=== PATIENT | female | born 1960 | race Caucasian/White ===

== ENCOUNTER → 2021-01-16 10:34 | Outpatient (BNVA) | payer MEDICAID, SELFPAY | PROVIDERS: PCP Internal Medicine; Visit Provider Student in an Organized Health Care Education/Training Program | DX: M25.562 Pain in left knee (principal); M25.561 Pain in right knee; M17.0 Bilateral primary osteoarthritis of knee; M79.7 Fibromyalgia; I73.00 Raynaud's syndrome without gangrene; Z87.891 Personal history of nicotine dependence; Z79.899 Other long term (current) drug therapy | CPT/HCPCS: 20610; 99212 ==

== ENCOUNTER 2021-05-21 11:21 | Outpatient (REF) | payer MEDICAID, SELFPAY ==
[2021-05-21 12:55] LABS: Hematocrit 38.1 % (37-47); Hemoglobin 12.8 g/dl (12.0-16.0); Mean Corpuscular HGB Conc 33.6 g/dl (31.0-35.0); Mean Corpuscular Hemoglobin 31.5 pg (27.0-33.0); Mean Corpuscular Volume 93.8 fL (80-98); Mean Platelet Volume 10.8 fL (9.4-12.3); Platelet Count 255 X10*3/uL (160-400); Red Blood Count 4.06 X10*6/uL (4.20-5.50); Red Cell Distribution Width 13.8 % (11.0-16.0); White Blood Count 8.6 X10*3/uL (4.8-10.8)
[2021-05-21 13:16] LABS: Alanine Aminotransferase 10 U/L (0-31); Albumin Level 4.2 g/dL (3.5-5.0); Alkaline Phosphatase 69 U/L (39-117); Anion Gap 15 (12-20); Aspartate Amino Transferase 17 U/L (5-31); Bilirubin Total 0.3 mg/dL (0.0-1.0); Blood Urea Nitrogen 6 mg/dL (9-16); Calcium 9.8 mg/dL (8.4-10.2); Carbon Dioxide 23 mmol/L (22-29); Chloride 105 mmol/L (96-108); Estimated Glomerular Filt Rate > 60; Glucose Random 85 mg/dL (60-115); Iron 85 mcg/dL (30-160); Percent Iron Saturation 27 % (15-50); Sodium 139 mmol/L (135-145); Total Iron Binding Capacity 313 mcg/dL (228-428); Total Protein 6.7 g/dL (6.5-8.0); Unsaturated Iron Binding 228 ug/dL
[2021-05-21 13:37] LABS: Vitamin D 25-OH Total 33.8 ng/mL (>30)
[2021-05-21 13:38] LABS: Vitamin B12 1197 pg/mL (200-900)
[2021-05-21 14:08] LABS: Ferritin 39 ng/mL (10-250)
== END 2021-05-21 11:22 | disposition home or self-care (01) ==
LOC: HO.MANLDS 11:21
PROVIDERS: PCP Internal Medicine; Visit Provider Internal Medicine
DX: R53.83 Other fatigue (principal)
CPT/HCPCS: 36415; 80053; 82306; 82607; 82728; 83540; 85027

== ENCOUNTER 2021-08-28 12:11 | Outpatient (REF) | payer MEDICAID, SELFPAY ==
--- NOTE | ~2021-08-28 | XR_ITS ---
EXAMINATION: XR KNEE STANDING, BILATERAL XR KNEE, RIGHT CLINICAL INFORMATION: Pain in unspecified knee. COMPARISON: XR bilateral knees 09/29/2019. TECHNIQUE: AP standing view of both knees. Lateral and sunrise views of the right knee. FINDINGS: Right Knee: There is no fracture, malalignment, or joint effusion. There is no change in moderate medial compartment narrowing. Left Knee: Limited AP view demonstrates no change in moderate narrowing in the medial compartment. XR/XR knee standing BI IMPRESSION: Right Knee: No change in moderate medial compartment narrowing. Left Knee: No change in moderate medial compartment narrowing.
--- NOTE | ~2021-08-28 | XR_ITS ---
EXAMINATION: XR KNEE STANDING, BILATERAL XR KNEE, RIGHT CLINICAL INFORMATION: Pain in unspecified knee. COMPARISON: XR bilateral knees 09/29/2019. TECHNIQUE: AP standing view of both knees. Lateral and sunrise views of the right knee. FINDINGS: Right Knee: There is no fracture, malalignment, or joint effusion. There is no change in moderate medial compartment narrowing. Left Knee: Limited AP view demonstrates no change in moderate narrowing in the medial compartment. XR/XR knee RT 2V IMPRESSION: Right Knee: No change in moderate medial compartment narrowing. Left Knee: No change in moderate medial compartment narrowing.
== END 2021-08-28 12:12 | disposition home or self-care (01) ==
LOC: HO.HOSX 12:11
PROVIDERS: Visit Provider Orthopaedic Surgery
DX: M17.11 Unilateral primary osteoarthritis, right knee (principal); M23.91 Unspecified internal derangement of right knee
CPT/HCPCS: 73560; 73565; 99202

== ENCOUNTER 2021-09-08 14:19 | Outpatient (REF) | payer MEDICAID, SELFPAY ==
--- NOTE | ~2021-09-08 | MR_ITS ---
EXAMINATION: MR KNEE WITHOUT CONTRAST, RIGHT CLINICAL INFORMATION: Primary osteoarthritis. Right knee pain. COMPARISON: Series of the right knee August 2021. TECHNIQUE: MRI of the knee without contrast was performed using routine sequences on a high-field scanner. FINDINGS: MENISCI: Medial Meniscus: There is marked attenuation of the body of the meniscus. There is also oblique increased signal in the posterior horn extending to the tibial articular surfaces. Findings compatible with tearing of the meniscus. Anterior horn remains intact. Lateral Meniscus: Intact. LIGAMENTS: Cruciate: Intact. Collateral: Intact. EXTENSOR MECHANISM: Intact. ARTICULAR CARTILAGE/BONE: Patellofemoral Compartment: Normal. Medial Compartment: Normal. Lateral Compartment: There are scattered areas of nonuniform up to high-grade cartilage loss and/or heterogeneity in the posterior weightbearing femoral articular surface. Tibial cartilage is intact. Overall mild arthrosis. JOINT FLUID AND BURSAE: Trace Glover's cyst. MR/MR knee RT wo con IMPRESSION: Abnormal-appearing medial meniscus which presumably represents a meniscal tear unless the patient has had prior surgery which could also result in a similar appearance. Mild osteoarthritis of the lateral compartment.
== END 2021-09-08 14:20 | disposition home or self-care (01) ==
LOC: HO.MRI 14:19
PROVIDERS: PCP Internal Medicine; Visit Provider Orthopaedic Surgery
DX: M17.11 Unilateral primary osteoarthritis, right knee (principal); M23.91 Unspecified internal derangement of right knee
CPT/HCPCS: 73721

== ENCOUNTER → 2021-09-22 12:29 | Outpatient (BNVA) | payer MEDICAID, SELFPAY | PROVIDERS: PCP Internal Medicine; Visit Provider Orthopaedic Surgery | DX: S83.241A Other tear of medial meniscus, current injury, right knee, initial encounter (principal) | CPT/HCPCS: 99212 ==

== ENCOUNTER 2021-10-15 05:53 | Day surgery (SDC) | payer MEDICAID, SELFPAY ==
[2021-10-09 11:50] VITALS: BMI 28.5
--- NOTE | 2021-10-14 08:39 | HO.ANESPROP2 ---
HPI - Anesthesia Eval Consult details Narrative: 61yo F for Right Knee Arthroscopy PMFSH Active Problems Active Problems: All Active Problems (Updated 10/09/21 @ 11:53 by Cassia Casanova RN) Primary osteoarthritis of right knee (Acute) Primary osteoarthritis of left knee (Acute) Internal derangement of left knee (Acute) Internal derangement of right knee (Acute) Tear of medial meniscus of left knee (Acute) Tear of medial meniscus of right knee (Acute) Past Medical History Medical History Fibromyalgia HTN (hypertension) Osteoarthritis Raynauds syndrome Wears dentures Family History Family History Father Prostate cancer Mother Aneurysm Surgical History Surgical History H/O: hysterectomy Hx of appendectomy S/P left knee arthroscopy S/P right knee arthroscopy Social History Social History Are you a primary manager primary care to a significant other at home: No Do you presently have visiting nurse or other home services: No Alcohol intake: never Patient Tobacco Use Status: Current everyday Tobacco user Tobacco use type: Cigarette Cigarettes Per Day: 10 Years Smoked: 48 Current occupational status: employed 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 [employer] Allergies Allergy/AdvReac Type Severity Reaction Status Date / Time Chapstick Allergy Mild lips swell Uncoded 10/20/21 11:16 Home Medications Medication Instructions Recorded Confirmed Last Taken Type gabapentin 300 mg capsule 300 mg PO TID 01/16/21 10/09/21 Unknown History nicotine 7 mg/24 hr daily 1 patch TRANSDERMAL Q24H 01/16/21 01/16/21 Unknown History transdermal patch amlodipine 10 mg tablet 10 mg PO DAILY 08/28/21 10/09/21 10/15/21 05:00 History sucralfate 1 gram tablet 1 g PO BID 08/28/21 10/09/21 Unknown History Exam Exam Date and Time: October 14, 2021 0839 Height,Weight and Vital Signs: Height 5 ft 7.5 in Weight 83.915 kg Pertinent Lab Results Pertinent Lab Results: Laboratory Tests 05/21/21 05/21/21 11:59 11:59 WBC 8.6 Hgb 12.8 Hct 38.1 Plt Count 255 Sodium 139 Potassium 4.0 Chloride 105 Carbon Dioxide 23 BUN 6 L Creatinine 0.69 Assessment and Plan Assessment Anesthesia Assessment: Chart Reviewed
[2021-10-15] VITALS (22 sets, daily range): BP systolic 94–110; BP diastolic 60–71; PULSE 53–73; RESP 10–16; TEMP 36.6–36.8; O2SAT 92–99
[2021-10-15] MEDS: Lactated Ringers 1,000 ML 100 ML IVCONT (06:26)
--- NOTE | 2021-10-15 07:31 | MHC.SHP ---
Pre-Procedural Eval Section A Date of Service: 10/15/21 The patient is an INPATIENT: No Changes since office visit: Yes Patient answered all questions; No Cold of Flu in the past 2 weeks, No New Medical Problems and No Changes in Medication The History & Physical has been completed within 30 days and I have reviewed it.: Yes Section B Chief Complaint: medial meniscus tear Allergies: Allergies Allergy/AdvReac Type Severity Reaction Status Date / Time Rosi Allergy Severe lips swell Uncoded 10/15/21 06:04 Plan I have reviewed the history and physical and performed a pertinent physical examination on my patient. No changes have occurred unless specified.
--- NOTE | 2021-10-15 08:09 | P.BOP_ITS ---
Brief Operative Note Date of Service: 10/15/21 Pre-op diagnosis: right knee MMT Post-op diagnosis: same Procedure: right knee with partial medial meniscectomy Implants: none Surgeon: Nelson Fermin MD Anesthesia: GETA and local Was an Gas Engine Performance Engineer used for this Procedure?: No Estimated blood loss (mL): 25 IV fluids (mL): 1,000 Pathology: none sent Condition: stable Disposition: PACU
[2021-10-15] MEDS: fentaNYL citrate/PF 100 MCG/2 ML VIAL 25 MCG IVPUSH (08:33)
[2021-10-15] MEDS: fentaNYL citrate/PF 100 MCG/2 ML VIAL 50 MCG IVPUSH (08:42)
[2021-10-15] MEDS: oxyCODONE HCl Immed Release 5 MG TABLET 10 MG PO (08:44)
--- NOTE | 2021-11-12 09:41 | W.PM.OPN ---
Operative Note Operative Note Date of Service: 10/15/21 Narrative: Date of Service: 10/15/21 Pre-op diagnosis: right knee MMT Post-op diagnosis: same Procedure: right knee with partial medial meniscectomy Implants: none Surgeon: Nelson Fermin MD Anesthesia: GETA and local Was an Computer Programming Supervisor used for this Procedure?: No Estimated blood loss (mL): 25 IV fluids (mL): 1,000 Pathology: none sent Condition: stable Disposition: PACU Patient was brought to the operating room placed supine on the arthroscopic table and prepped and draped in standard sterile fashion. A time-out was called to identify proper site proper procedure proper surgeon and IV antibiotics per weight were administered. I began by exsanguinating the limb and insufflating tourniquet to 300 mm Hg. Then made a standard anterolateral stab incision. knee was insufflated with water and 30 degree arthroscope was placed. There was grade 1 fibrillations of the patella but overall suprapatellar pouch was plane and the gutters were clean. I descended into the medial compartment where I made my medial portal under direct visualization. There was obvious of complex tear of the body and posterior horn of the medial meniscus. Root was intact and there was grade 1 changes with some scattered grade 2 changes throughout the medial compartment. I used a combination of biter shaver and cautery to remove unstable portions of the meniscus. Approximately 40% meniscal volume was removed. Once I was happy with this the ACL was examined and found to be intact and the lateral compartment also was without the need for intervention. I then removed all instrumentation and closed the portals with skin glue. 25 mL of 2% Marcaine with epinephrine was injected into the joint and the surrounding soft tissues. Patient was then placed in sterile dressing extubated brought recovery room stable condition. There were no known complications.
== END 2021-10-15 12:15 | disposition home or self-care (01) ==
PROVIDERS: PCP Internal Medicine; Visit Provider Orthopaedic Surgery
PROC: (CPT 29870; principal; 2021-10-15 07:30)
DX: S83.231A Complex tear of medial meniscus, current injury, right knee, initial encounter (principal); X58.XXXA Exposure to other specified factors, initial encounter; Y93.9 Activity, unspecified; Y92.9 Unspecified place or not applicable; Y99.8 Other external cause status; M17.11 Unilateral primary osteoarthritis, right knee; M79.7 Fibromyalgia; I73.00 Raynaud's syndrome without gangrene; I10 Essential (primary) hypertension; Z79.899 Other long term (current) drug therapy; F17.210 Nicotine dependence, cigarettes, uncomplicated
CPT/HCPCS: 29881; J0171; J0690; J1100; J1885; J2250; J2405; J3010

== ENCOUNTER 2021-10-20 09:51 | Outpatient (RCR) | payer MEDICAID, SELFPAY ==
--- NOTE | 2021-10-15 07:07 | P.CONAN_ITS ---
[facility] Active Problems Active Problems: All Active Problems (Updated 10/15/21 @ 06:04 by Milly Cage RN) Primary osteoarthritis of right knee (Acute) Primary osteoarthritis of left knee (Acute) Internal derangement of left knee (Acute) Internal derangement of right knee (Acute) Tear of medial meniscus of left knee (Acute) Tear of medial meniscus of right knee (Acute) Past Medical History Medical History Fibromyalgia HTN (hypertension) Osteoarthritis Raynauds syndrome Wears dentures Family History Family History Father Prostate cancer Mother Aneurysm Family history of problems with anesthesia: No Surgical History Surgical History H/O: hysterectomy Hx of appendectomy S/P left knee arthroscopy S/P right knee arthroscopy History of Problems with Anesthesia: No Social History Social History (Updated 10/09/21 @ 11:50 by Cassia Casanova RN) Are you a primary primary care sales representative to a significant other at home: No Do you presently have visiting nurse or other home services: No Alcohol intake: never Patient Tobacco Use Status: Current everyday Tobacco user Tobacco use type: Cigarette Cigarettes Per Day: 10 Years Smoked: 48 Use of substances other than those prescribed or required for medical reasons: No Have you been hit, kicked, punched, or otherwise hurt by someone within the past year? 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 - [employer] Allergies Allergy/AdvReac Type Severity Reaction Status Date / Time Chapstick Allergy Severe lips swell Uncoded 10/15/21 06:04 Home Medications Medication Instructions Recorded Confirmed Last Taken Type gabapentin 300 300 mg PO TID 01/16/21 10/09/21 Unknown History mg capsule nicotine 7 1 patch 01/16/21 01/16/21 Unknown History mg/24 hr daily TRANSDERMAL Q24H transdermal patch amlodipine 10 10 mg PO DAILY 08/28/21 10/09/21 10/15/21 05:00 History mg tablet sucralfate 1 1 g PO BID 08/28/21 10/09/21 Unknown History gram tablet Exam Exam Date and Time: October 15, 2021 0790 Airway Mallampati Class: II TM Dist: >3cm Neck ROM: Full Denture: Upper Assessment and Plan Assessment Anesthesia Assessment: Anesthesia Plan Discussed, Smoking Cess. Discussed and Chart Reviewed Final Anesthetic Review Family History of Problems with Anesthesia: No History of Problems with Anesthesia: No NPO: Yes ASA Class: II Final Preanesthetic Review: No Changes in Pt Med Stat, Meds/Allgs Chart Reviewed, Consent Obtained/Reviewed and Anes Risks/Benef Reviewed Patient Risk: Intermediate Procedure Risk: Low Anesthetic Plan Anesthetic Plan: GA Disposition: Standard PACU
== END 2021-12-08 14:52 | disposition home or self-care (01) ==
LOC: HO.PT 09:51
PROVIDERS: PCP Internal Medicine; Visit Provider Physician Assistant
DX: Z01.818 Encounter for other preprocedural examination (principal)

== ENCOUNTER → 2021-10-20 11:03 | Outpatient (BNVA) | payer MEDICAID, SELFPAY | PROVIDERS: PCP Internal Medicine; Visit Provider Physician Assistant | DX: M17.11 Unilateral primary osteoarthritis, right knee (principal); M23.91 Unspecified internal derangement of right knee | CPT/HCPCS: 99212 ==

== ENCOUNTER 2021-11-17 13:30 | Outpatient (REF) | payer MEDICAID, SELFPAY ==
--- NOTE | ~2021-11-17 | XR_ITS ---
EXAMINATION: XR HIP, LEFT CLINICAL INFORMATION: Pain COMPARISON: None TECHNIQUE: Two views of the left hip. One view of the pelvis. XR/XR hip LT w PEL1V FINDINGS/IMPRESSION: No acute fracture or dislocation. Hip joint spaces are maintained. Degenerative disc disease of the visualized lumbosacral spine. Bilateral sacroiliac joint spaces are not clearly maintained and may demonstrate partial ankylosis. This could be confirmed with a dedicated SI joint radiograph. Soft tissues are unremarkable.
== END 2021-11-17 13:31 | disposition home or self-care (01) ==
LOC: HO.HOSX 13:30
PROVIDERS: PCP Internal Medicine; Visit Provider Physician Assistant
DX: M76.899 Other specified enthesopathies of unspecified lower limb, excluding foot (principal)
CPT/HCPCS: 73502; 99212

== ENCOUNTER 2024-06-29 09:58 | Outpatient (AMB) | payer MEDICARE, SELFPAY ==
--- NOTE | 2024-06-29 10:22 | MHC.OFFVIS ---
Intake Visit Reasons: OV- Right Knee pain 10/15/21 NE Intake Note: Jose Cruz is a 64 year old female who presents today for a follow up of her right Knee 10/15/21 NE. Patient reports her pain started to come back about a month ago. She mentions that she was cleaning her house and taking her bosses dog a bath which she was kneeling down most of the time. Allergies Chapstick Allergy (Mild, Uncoded 11/17/21 13:41) lips swell HPI HPI OV- Right Knee pain 10/15/21 NE: Details: 64-year-old female who presents in the office today 2.8 years status post right knee arthroscopy, which was performed on 10/15/[address] Fermin. I last saw the patient in the office on 11/17/21 for an evaluation of left hip pain. I offered her physical therapy; however, the patient deferred it and expressed to work with her friend who is a instrumentation instructor in regards to stretching the hip flexor. The patient was seen by Zoila Hallman PA-C, at [facility] on 06/07/24 with the chief complaint of right knee pain that started on 06/06/24. He was prescribed oxycodone 5 mg PO TID for 5 days for pain and was advised to remain out of work for a week to help with pain relief. While in the office today, the patient reports her right knee pain has returned and has been ongoing for about a month. She mentions her activities which include cleaning her house and taking her boss's dog for a bath, having to kneel down most of the time. [facility] Medical History Fibromyalgia HTN (hypertension) Osteoarthritis Raynauds syndrome Wears dentures Surgical History H/O: hysterectomy Hx of appendectomy S/P left knee arthroscopy S/P right knee arthroscopy Family History Father Prostate cancer Mother Aneurysm Social History Are you a primary post acute care nurse practitioner to a significant other at home: No Do you presently have visiting nurse or other home services: No Alcohol intake: never Patient Tobacco Use Status: Current everyday Tobacco user Tobacco use type: Cigarette Cigarettes Per Day: 10 Years Smoked: 48 Current occupational status: employed 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 No ecchymosis, erythema, or joint effusion. Tenderness to palpation of the medial joint line. ROM is 0-90 degrees. NVI. Office Procedures Joint Injection/Aspiration Joint Injection/Aspiration Primary Site: right knee Prep: site was prepped using aseptic technique, ethochloride spray was applied and injection warnings given Injected: 80 mg of, DepoMedrol, with 8 mL of (2% plain lido) and in the joint Approach Used: anterolateral Procedure: The patient tolerated the procedure well, but had some pain with the injection and there was some relief with the local anesthesia Coding 50970 - Large joint Procedure code (CPT) selection complete Assessment & Plan Assessment & Plan (1) Primary osteoarthritis of right knee: Code(s): M17.11 - Unilateral primary osteoarthritis, right knee Category: Medical Plan Ms. Mahmood is a 64-year-old female who presents in the office today 2.8 years status post right knee arthroscopy, which was performed on 10/15/[address] Fermin. I last saw the patient in the office on 11/17/21 for an evaluation of left hip pain. I offered her physical therapy; however, the patient deferred it and expressed to work with her friend who is a instrumentation instructor in regards to stretching the hip flexor. The patient was seen by Zoila Hallman PA-C, at [facility] on 06/07/24 with the chief complaint of right knee pain that started on 06/06/24. He was prescribed oxycodone 5 mg PO TID for 5 days for pain and was advised to remain out of work for a week to help with pain relief. While in the office today, the patient reports her right knee pain has returned and has been ongoing for about a month. She mentions her activities which include cleaning her house and taking her boss's dog for a bath, having to kneel down most of the time. The patient was offered a cortisone injection in the right knee with 80 mg of Depo-Medrol. The patient was explained the risks, benefits, and alternatives to receiving this injection. After receiving consent for the injection, the patient had the procedure done while in the office today. The patient tolerated the procedure well with no complications. Follow-up will be PRN, or sooner if needed. X-rays of the right knee which were obtained while in the office today and were reviewed by me, Christal Nguyen PA-C, revealed: Medial compartment osteoarthritis. Orders: Orders XR knee RT 3V Today M25.569 - Pain in unspecified knee XR knee LT 1V Today M25.569 - Pain in unspecified knee Patient Instructions: Scribed by Nancy García, medical art therapist, for Christal Nguyen PA-C on 06/29/24 at 10:26 am EST. Coding Level of Care Code New Pt Level 3 (73402) Diagnoses Primary osteoarthritis of right knee M17.11 CPT Codes Coding - 59777 Large joint: 66505 - Large joint ([id number])
== END 2024-06-29 10:50 | disposition home or self-care (01) ==
PROVIDERS: PCP Internal Medicine; Visit Provider Physician Assistant
DX: M17.11 Unilateral primary osteoarthritis, right knee (principal)
CPT/HCPCS: 20610; 99213

== ENCOUNTER 2024-06-29 10:14 | Outpatient (REF) | payer OTHER, SELFPAY ==
--- NOTE | ~2024-06-29 | XR_ITS ---
EXAMINATION: XR KNEE RIGHT 2 VIEWS CLINICAL INFORMATION: Pain in unspecified knee M25.569. COMPARISON: XR Right knee 08/28/2021 TECHNIQUE: Two views of the right knee. FINDINGS: No fracture or joint effusion. Alignment is anatomic. Joint spaces are maintained. No abnormal soft tissue calcification. XR/XR knee RT 3V IMPRESSION: Normal right knee. Electronically signed by: Wily Calloway MD 08/24/2024 09:20 AM [place]
--- NOTE | ~2024-06-29 | XR_ITS ---
EXAMINATION: XR KNEE LEFT 1 VIEW CLINICAL INFORMATION: Pain in unspecified knee M25.569. COMPARISON: XR Left knee 09/29/2019 TECHNIQUE: One standing view of the left knee. FINDINGS: No fracture or subluxation. Mild medial compartment joint space narrowing. The patella is not fully evaluated on this single view. Cannot evaluate for joint effusion. Alignment at the right knee is maintained with mild medial compartment narrowing. XR/XR knee LT 1V IMPRESSION: Mild medial compartment joint space narrowing of the left knee. Limited evaluation of the patella on this single view. Electronically signed by: Bob Flores MD 08/23/2024 07:53 AM EST
== END 2024-06-29 10:15 | disposition home or self-care (01) ==
LOC: HO.HOSX 10:14
PROVIDERS: Visit Provider Physician Assistant
DX: M17.11 Unilateral primary osteoarthritis, right knee (principal); M25.569 Pain in unspecified knee
CPT/HCPCS: 20610; 73560; 73562; 99212; J1010; J2003